=== PATIENT | male | born 1965 | race Caucasian/White ===

== ENCOUNTER 2016-11-01 14:26 | Emergency (ER) | payer OTHER ==
[2016-11-01] MEDS ORDERED: DEXAMETHASONE 10 MG/ML VIAL PO STA (16:35)
[2016-11-01] MEDS ORDERED: KETOROLAC 60 MG/2 ML VIAL IM STA (16:35)
--- NOTE | 2016-11-01 16:37 | ED Physician Documentation ---
PD HPI BACK PAIN - Stated complaint Stated Complaint: BACK INJ - Chief complaint Chief Complaint: Back Pain - History obtained from History obtained from: Patient - History of Present Illness Timing - onset: How many days ago (11) Timing - duration: Days (11) Timing - details: Abrupt onset Pain level max: 8 Pain level now: 8 Location: Lower, Left Quality: Pain, Spasm Associated symptoms: No: Fever, Weakness, Numbness, Incontinent of urine, Unable to urinate, Hematuria, Incontinent of stool Improves with: Rest, Meds (aleve) Worsened by: Movement, Lifting Contributing factors: Lifting, Twisting. No: Anticoagulated, Cancer Similar symptoms before: Has not had sx before Recently seen: Not recently seen - Additional information Additional information: states reseating a toilet at work and felt a tweak in his low back. Not improving with aleve. Review of Systems Constitutional: denies: Fever, Chills Nose: denies: Rhinorrhea / runny nose, Congestion GI: denies: Abdominal Pain, Nausea, Vomiting, Diarrhea Skin: denies: Rash Musculoskeletal: denies: Neck pain Neurologic: denies: Focal weakness, Numbness PD PAST MEDICAL HISTORY - Past Medical History Past Medical History: No - Past Surgical History Past Surgical History: No - Present Medications Home Medications: Ambulatory Orders Medication Instructions Recorded Confirmed Cyclobenzaprine [Flexeril] 10 mg PO TID PRN #20 tablet 11/01/16 Hydrocodone/Acetaminophen 1 - 2 each PO Q6H PRN #14 tablet 11/01/16 [Hydrocodon-Acetaminophen 5-325] Meloxicam [Mobic] 7.5 mg PO BID PRN #20 tablet 11/01/16 - Allergies Allergies/Adverse Reactions: Allergies Allergy/AdvReac Type Severity Reaction Status Date / Time meperidine HCl * Allergy Hives Verified 11/01/16 14:41 [From Demerol] Sulfa (Sulfonamide Allergy Nausea Verified 11/01/16 14:41 Antibiotics) - Living Situation Living Arrangement: reports: At home - Social History Does the pt have substance abuse?: No - Family History Family history: reports: Non contributory PD ED PE NORMAL - Vitals Vital signs reviewed: Yes - General General: Alert and oriented X 3, No acute distress, Well developed/nourished - HEENT HEENT: Moist mucous membranes - Neck Neck: Supple, no meningeal sign - Cardiac Cardiac: RRR - Respiratory Respiratory: No respiratory distress, Clear bilaterally - Abdomen Abdomen: Soft, Non tender, Non distended - Back Back: No CVA TTP, Other (No midline spinal tenderness. There is low lumbar paraspinal tenderness, right low lumbar. Spasm present. No midline tenderness to palpation or percussion) - Derm Derm: Warm and dry, No rash - Extremities Extremities: Other (normal bilateral lower extremity patellar and ankle jerk reflexes. Normal great toe extension bilaterally) - Neuro Neuro: Alert and oriented X 3, No motor deficit, No sensory deficit - Psych Psych: Normal mood, Normal affect Results - Vitals Vitals: Vital Signs - 24 hr 11/01/16 11/01/16 14:36 16:52 Temperature 36.6 C Heart Rate 72 74 Respiratory 18 14 Rate Blood Pressure 122/80 134/76 H O2 Saturation 98 99 Oxygen O2 Source Room air PD MEDICAL DECISION MAKING - ED course Complexity details: reviewed results, re-evaluated patient, considered differential (no cauda equina, no spinal epidural abscess, no fracture, no aortic dissection or evidence of aneursym rupture), d/w patient ED course: Patient is a 51-year-old male who presents to the emergency department with low back pain that he injured at work approximately 10-11 days ago. He is well- appearing, nontoxic. Afebrile. Does not use IV drugs. No evidence of cauda equina, epidural abscess. Will place on pain medication for home and follow-up with his doctor. Ambulating well. Patient counseled regarding signs and symptoms for which I believe and urgent re-evaluation would be necessary. Patient with good understanding of and agreement to plan and is comfortable going home at this time This document was made in part using voice recognition software. While efforts are made to proofread this document, sound alike and grammatical errors may occur. Departure - Departure Disposition: 01 Home, Self Care Clinical Impression: Back strain Qualifiers: Encounter type: initial encounter Qualified Code(s): S39.012A - Strain of muscle, fascia and tendon of lower back, initial encounter Back pain Qualifiers: Back pain location: low back pain Chronicity: acute Back pain laterality: left Sciatica presence: without sciatica Qualified Code(s): M54.5 - Low back pain Condition: Good Instructions: ED Sprain Strain Lumbar Follow-Up: Yuri Tapia MD [Primary Care Provider] - Within 1 week Prescriptions: Cyclobenzaprine [Flexeril] 10 mg PO TID PRN #20 tablet PRN Reason: Spasms Hydrocodone/Acetaminophen [Hydrocodon-Acetaminophen 5-325] 1 - 2 each PO Q6H PRN #14 tablet PRN Reason: pain Meloxicam [Mobic] 7.5 mg PO BID PRN #20 tablet PRN Reason: pain Comments: Return if you worsen. This should improve over the next week. Make sure to follow-up with your doctor as you may need further testing such as an MRI or referral to physical therapy if you are not improving as expected. Do not drink alcohol or drive while on narcotic pain medicine. Note that many narcotic pain relievers also contain tylenol/acetaminophen. Please ensure that your total dose of acetaminophen from all sources does not exceed 3 grams (3000mg) per day. You may constipated on this medication, take a stool softener such as "Colace" twice a day while you are on it. Also recommend a kuww-nfu-iynkzqe laxative such as senna or MiraLAX any day that you do not have a bowel movement. If you received narcotic pain medication in the emergency department, do not drive or operate machinery for the next 24 hours. Discharge Date/Time: 11/01/16 16:52
[2016-11-01 16:53] VITALS: BP 134/76
== END 2016-11-01 16:52 | disposition home or self-care (01) ==
LOC: ED 14:26
DX: S39.012A Strain of muscle, fascia and tendon of lower back, initial encounter (principal); X50.1XXA Overexertion from prolonged static or awkward postures, initial encounter; Y99.0 Civilian activity done for income or pay; M54.5 Low back pain
CPT/HCPCS: 96372; 99283

== ENCOUNTER 2017-04-30 07:07 | Outpatient (CLI) | payer OTHER ==
[2017-04-30 13:29] LABS: ALBUMIN 4.3 g/dL (3.2-5.5); ALBUMIN/GLOBULIN RATIO 1.8 (1.0-2.2); ALKALINE PHOSPHATASE 67 IU/L (42-121); ALT ALANINE AMINOTRANSFERASE 22 IU/L (10-60); AST ASPARTATE AMINOTRANSFERASE 22 IU/L (10-42); BILIRUBIN,TOTAL 0.7 mg/dL (0.2-1.0); BUN - BLOOD UREA NITROGEN 19 mg/dL (6-20); CALCIUM 9.1 mg/dL (8.5-10.3); CARBON DIOXIDE - CO2 26 mmol/L (21-32); CHLORIDE 103 mmol/L (101-111); CHOL/HDL RATIO 3.9 (<5.0); CHOLESTEROL 183 mg/dL; GFR - MDRD 79 (>89); GLUCOSE 91 mg/dL (70-100); HDL CHOLESTEROL 47 mg/dL; LDL CHOLESTEROL,CALCULATED 119 mg/dL; LDL/HDL RATIO 2.5 (<3.6); SODIUM 137 mmol/L (135-145); TOTAL PROTEIN 6.7 g/dL (6.7-8.2); VLDL CHOLESTEROL 17 mg/dL
== END 2017-04-30 07:08 | disposition home or self-care (01) ==
LOC: LAB.WCP 07:07
PROVIDERS: ATTEND Family Medicine
DX: E78.5 Hyperlipidemia, unspecified (principal); I10 Essential (primary) hypertension; Z12.5 Encounter for screening for malignant neoplasm of prostate
CPT/HCPCS: 36415; 80053; 80061; 83721; 84153

== ENCOUNTER 2019-06-15 10:15 | Day surgery (SDC) | payer OTHER ==
[2019-06-15] MEDS ORDERED: CEFAZOLIN SODIUM IN 0.9 % NACL 2 GM/100 ML BAG IV ONE (10:20)
[2019-06-15] MEDS ORDERED: ONDANSETRON 4 MG/2 ML VIAL IVP PRN (10:46)
[2019-06-15] MEDS ORDERED: HYDROmorphone 0.5 MG/0.5 ML SYRINGE IVP PRN (10:46)
[2019-06-15] MEDS ORDERED: oxyCODONE 5 MG TABLET PO PRN (10:46)
[2019-06-15] MEDS ORDERED: LACTATED RINGERS 1,000 ML IV ONE ×5 (10:50→19:44)
--- NOTE | 2019-06-15 13:07 | ANESTHESIA ---
Pre-Anesthesia VS, & Labs - Diagnosis right inguinal hernia - Procedure laparoscopic right inguinal hernia repair Vital Signs: Temp Pulse Resp BP Pulse Ox 36.6 C 55 L 16 155/101 H 99 06/15/19 10:25 06/15/19 10:25 06/15/19 10:25 06/15/19 10:25 06/15/19 10:25 Height 6 ft 1 in Weight (kg) 94.8 kg Body Mass Index 28.3 - NPO >8 hours Home Medications and Allergies Home Medications: Ambulatory Orders Aspirin [Aspirin EC] 81 mg PO DAILY 06/14/19 Lisinopril [Zestril] 20 mg PO DAILY 06/14/19 Multivitamin [Multiple Vitamins] 1 each PO DAILY 06/14/19 Active Medications Hydromorphone HCl (Dilaudid Inj Syringe) 0.5 mg IVP Q30M PRN PRN Reason: Breakthrough Pain Ondansetron HCl (Zofran Inj) 4 mg IVP Q6HR PRN PRN Reason: Nausea / Vomiting Oxycodone HCl (Roxicodone) 5 mg PO Q4HR PRN PRN Reason: PAIN Aspirin [Aspirin EC] 81 mg PO DAILY 06/14/19 Lisinopril [Zestril] 20 mg PO DAILY 06/14/19 Multivitamin [Multiple Vitamins] 1 each PO DAILY 06/14/19 Allergies/Adverse Reactions: Allergies Allergy/AdvReac Type Severity Reaction Status Date / Time meperidine HCl * Allergy Hives Verified 11/01/16 14:41 [From Demerol] shrimp Allergy Respiratory Verified 06/14/19 08:38 Sulfa (Sulfonamide AdvReac Nausea Verified 06/14/19 08:38 Antibiotics) Anes History & Medical History - Anesthetic History Anesthesia Complications: reports: No previous complications - Medical History Cardiovascular: reports: Hypertension Pulmonary: reports: None Gastrointestinal: reports: None Urinary: reports: None Musculoskeletal: reports: Osteoarthritis Endocrine/Autoimmune: reports: None Skin: reports: None Smoking Status: Never smoker - Surgical History General: Appendectomy Orthopedic: Arthroscopic surgery (knee) Exam General: Alert Dental: WNL Mouth Opening: Greater than 4 Fingerbreadths Neck Mobility: Normal Mallampati classification: II Thyromental Distance: greater than 6 cm Respiratory: Lungs clear, Normal breath sounds, No respiratory distress Cardiovascular: Regular rate, Normal S1, Normal S2 Plan Anesthesia Type: General Consent for Procedure(s) Verified and Reviewed: Yes Code Status: Attempt Resuscitation ASA classification: 2-Mild systemic disease Is this case an emergency?: No
[2019-06-15] MEDS ORDERED: LIDOCAINE 1%-EPI 1:100000 20 ML MDV ONE (13:21)
[2019-06-15] MEDS ORDERED: BUPIVACAINE 0.25% PF 30 ML VIAL ONE (13:21)
[2019-06-15] MEDS ORDERED: ACETAMINOPHEN 1,000 MG/100 ML 100 ML IV ONE ×2 (13:23→13:48)
[2019-06-15] MEDS ORDERED: ONDANSETRON 4 MG/2 ML VIAL IVP ONE (13:48)
[2019-06-15] MEDS ORDERED: NEOSTIGMINE 1 MG/1 ML 10 ML MDV IVP ONE (13:48)
[2019-06-15] MEDS ORDERED: LIDOCAINE-MPF 2% 5 ML VIAL IM ONE (13:48)
[2019-06-15] MEDS ORDERED: GLYCOPYRROLATE 1 MG/5 ML VIAL IVP ONE (13:48)
[2019-06-15] MEDS ORDERED: fentaNYL 100 MCG/2 ML VIAL IVP ONE (13:48)
[2019-06-15] MEDS ORDERED: PROPOFOL 200 MG/20 ML VIAL IVP ONE (13:48)
[2019-06-15] MEDS ORDERED: KETOROLAC 30 MG/ML VIAL IVP ONE (13:48)
[2019-06-15] MEDS ORDERED: DEXAMETHASONE 4 MG/ML VIAL IVP ONE (13:48)
[2019-06-15] MEDS ORDERED: ROCURONIUM 50 MG/5 ML VIAL IVP ONE (13:48)
[2019-06-15] MEDS ORDERED: LIDOCAINE MPF 1%-EPI 1:200000 30 ML VIAL SUBQ ONE (14:18)
[2019-06-15] MEDS ORDERED: BUPIVACAINE 0.25% PF 30 ML VIAL SUBQ ONE (14:19)
--- NOTE | 2019-06-15 17:23 | OPERATIVE REPORT ---
Operative Report - General Pre-Op Diagnosis: Right Inguinal Hernia Procedure Performed: 1. Laparoscopic Transabdominal Right Inguinal Hernia Repair with 22 modifier for strong and chronic adhesions to tissue around spermatic cord 2. Laparoscopic Lysis of Adhesions Post Op Diagnosis: same - Procedure Note Primary Surgeon: Heather France MD Anesthesia Provider: Kerry Pacheco CRNA Anesthesia Technique: General ET tube Pathology: none Estimated Blood Loss (mL): 20 Indications: 53yo M with symptomatic right inguinal hernia limiting his ability to work. He is very concerned about getting back to work quickly although we discussed the importance of not stressing the repair for 6 weeks. He would much prefer a laparoscopic approach so he can get back to work faster. He does understand this may be difficult or not feasible given a prior gangrenous appendicitis which he described as needed 'a month of antibiotics.' All risks, benefits, and alternatives discussed and pt wishes to proceed. Findings: 1. indirect right hernia with large lipoma 2. thick and tight chronic adhesions along right lower quadrant and involving tissue around spermatic cord 3. left sided inguinal hernia noted 4. diverticulosis of sigmoid colon Complications: thick adhesions in critical area causing prolonged and tedious dissection - Other Other Information/Narrative: The patient was taken to the operating room and placed on operating table in supine position. The abdomen was prepped and draped in sterile fashion and a time out is performed with the team present. Local anesthesia was used to infiltrate each port site as well as perform an ilioinguinal block. Using an 11 blade scalpel, a 12 mm periumbilical incision was made and the abdomen entered via cutdown technique to introduce a Xiao trocar. Pneumoperitoneum was introduced. Two secondary 5mm trocars were then placed under direct vision lateral to the bilateral rectus sheaths. The abdomen was inspected and there was bowel adherent along the right lower quadrant peritoneum. Some of this was carefully taken down to expose the plane needed to work. Other observations include a moderate left sided inguinal hernia as diverticulosis of the sigmoid colon. Initial dissection began on the right side with an incision into the peritoneum which was carried laterally to the ASIS and medially to the pubic tubercle. The plane was developed and this was quite tedious in the area of the spermatic cord as adhesions to the peritoneum here involved the spermatic cord tissues. This scarred tissue is thick and strong. Very long and careful dissection was undertaken to separate the structures safely until the hernia defect, epigastric vessels, cord structures, and pubic tubercle were exposed. Consideration was given to stopping and opening but slow progress was being made and staying laparoscopic will benefit patient in his need to return sooner to work. The indirect defect was reduced. A large cord lipoma was encountered and also reduced. A large right sided Bard contoured mesh was introduced and carefully placed to cover the defect and overlap the pubic tubercle as well as potential spaces for indirect and femoral defects. It is secured into place with tacks with attention to underlying vessel and nerve anatomy. The peritoneal flap is then closed and secured with tacks with attention to the remaining bowel that was not taken down due to close adhesions. The left sided hernia noted on initial inspection was left due to the already prolonged surgery and as it is asymptomatic. The secondary trocars were removed under direct vis ion noting no bleeding. The abdomen was allowed to desufflate fully. The final trocar was removed. The periumbilical incision is closed with previously placed stay sutures. The skin incisions were then re-approximated using 4-0 Monocryl in an interrupted subcuticular fashion. The abdomen was cleaned and dried and Dermabond was placed over each of the incisions. The patient was awakened and taken to the postanesthesia care unit in stable condition. All counts were correct at the end of the procedure.
[2019-06-15] MEDS: fentaNYL 100 MCG/2 ML VIAL ONE ×2 (17:35→17:41)
[2019-06-15] MEDS ORDERED: oxyCODONE 5 MG TABLET ONE (18:07)
[2019-06-15 21:32] VITALS: BP 160/89
== END 2019-06-15 21:30 | disposition home or self-care (01) ==
LOC: SDS 10:15 → MS2 19:50 → SDS 21:30
PROVIDERS: ATTEND Surgery
PROC: 0YU54JZ Supplement Right Inguinal Region with Synthetic Substitute, Percutaneous Endoscopic Approach (ICD-10-PCS; principal; 2019-06-15 12:45)
DX: K40.20 Bilateral inguinal hernia, without obstruction or gangrene, not specified as recurrent (principal); K66.0 Peritoneal adhesions (postprocedural) (postinfection); D17.6 Benign lipomatous neoplasm of spermatic cord; K57.30 Diverticulosis of large intestine without perforation or abscess without bleeding; I10 Essential (primary) hypertension; Z79.82 Long term (current) use of aspirin
CPT/HCPCS: 49650; A9270; C1781; J0131; J0690; J7120

== ENCOUNTER 2019-09-03 07:25 | Outpatient (CLI) | payer OTHER ==
[2019-09-03 14:03] LABS: ALBUMIN 4.3 g/dL (3.2-5.5); ALBUMIN/GLOBULIN RATIO 1.4 (1.0-2.2); ALKALINE PHOSPHATASE 82 IU/L (42-121); ALT ALANINE AMINOTRANSFERASE 24 IU/L (10-60); AST ASPARTATE AMINOTRANSFERASE 35 IU/L (10-42); BILIRUBIN,TOTAL 0.5 mg/dL (0.2-1.0); BUN - BLOOD UREA NITROGEN 16 mg/dL (6-20); CALCIUM 8.8 mg/dL (8.5-10.3); CARBON DIOXIDE - CO2 24 mmol/L (21-32); CHLORIDE 106 mmol/L (101-111); CHOL/HDL RATIO 3.4 (<5.0); CHOLESTEROL 181 mg/dL; CREATININE 0.9 mg/dL (0.6-1.2); GLUCOSE 107 mg/dL (70-100); HDL CHOLESTEROL 54 mg/dL; LDL CHOLESTEROL,CALCULATED 117 mg/dL; LDL/HDL RATIO 2.2 (<3.6); SODIUM 137 mmol/L (135-145); TOTAL PROTEIN 7.3 g/dL (6.7-8.2); VLDL CHOLESTEROL 10 mg/dL
== END 2019-09-03 23:59 | disposition home or self-care (01) ==
LOC: LAB.WCP 07:25
PROVIDERS: ATTEND Family Medicine
DX: E78.5 Hyperlipidemia, unspecified (principal); I10 Essential (primary) hypertension; Z12.5 Encounter for screening for malignant neoplasm of prostate
CPT/HCPCS: 36415; 80053; 80061; 83721; 84153

== ENCOUNTER 2022-10-17 13:13 | Outpatient (CLI) | payer OTHER ==
[2022-10-17 17:56] LABS: BASOPHILS # (AUTO) 0.1 10^3/uL (0.0-0.1); BASOPHILS % (AUTO) 0.8 %; EOSINOPHILS # (AUTO) 0.2 10^3/uL (0.0-0.7); EOSINOPHILS % (AUTO) 2.6 %; HCT - HEMATOCRIT 46.3 % (42.0-52.0); HGB - HEMOGLOBIN 15.6 g/dL (14.0-18.0); LYMPHOCYTES # (AUTO) 2.3 10^3/uL (1.5-3.5); LYMPHOCYTES % (AUTO) 25.1 %; MEAN CORPUSCULAR HGB CONC 33.7 g/dL (32.0-36.0); MEAN PLATELET VOLUME 9.3 fL (7.4-11.4); MONOCYTES # (AUTO) 0.7 10^3/uL (0.0-1.0); NEUTROPHILS # (AUTO) 5.8 10^3/uL (1.5-6.6); NEUTROPHILS % (AUTO) 63.3 %; PLT - PLATELET COUNT 364 10^3/uL (130-450); RED CELL DISTRIBUTION WIDTH 12.9 % (12.0-15.0); WHITE BLOOD COUNT 9.2 x10^3/uL (4.8-10.8)
[2022-10-17 18:15] LABS: ALBUMIN 4.6 g/dL (3.2-5.5); ALBUMIN/GLOBULIN RATIO 1.4 (1.0-2.2); ALKALINE PHOSPHATASE 79 IU/L (42-121); ALT ALANINE AMINOTRANSFERASE 26 IU/L (10-60); AST ASPARTATE AMINOTRANSFERASE 22 IU/L (10-42); BILIRUBIN,TOTAL 0.7 mg/dL (0.2-1.0); BUN - BLOOD UREA NITROGEN 23 mg/dL (6-20); CALCIUM 9.7 mg/dL (8.5-10.3); CARBON DIOXIDE - CO2 27 mmol/L (21-32); CHLORIDE 105 mmol/L (101-111); CHOL/HDL RATIO 3.9 (<5.0); CHOLESTEROL 195 mg/dL; CREATININE 0.9 mg/dL (0.6-1.2); GFR - MDRD 87 (>89); GLUCOSE 88 mg/dL (70-100); HDL CHOLESTEROL 50 mg/dL; LDL CHOLESTEROL,CALCULATED 117 mg/dL; LDL/HDL RATIO 2.3 (<3.6); POTASSIUM 4.2 mmol/L (3.5-5.0); SODIUM 138 mmol/L (135-145); TOTAL PROTEIN 7.9 g/dL (6.7-8.2); TRIGLYCERIDES 139 mg/dL; VLDL CHOLESTEROL 28 mg/dL
[2022-10-17 18:20] LABS: THYROID STIMULATING HORMONE 1.15 uIU/mL (0.34-5.60)
== END 2022-10-17 13:14 | disposition home or self-care (01) ==
LOC: LAB.N 13:13
PROVIDERS: ATTEND Physician Assistant
DX: Z13.220 Encounter for screening for lipoid disorders (principal); Z12.5 Encounter for screening for malignant neoplasm of prostate; Z13.29 Encounter for screening for other suspected endocrine disorder; Z13.9 Encounter for screening, unspecified
CPT/HCPCS: 36415; 80053; 80061; 83721; 84153; 84443; 85025

== ENCOUNTER 2023-05-20 08:01 | Outpatient (CLI) | payer OTHER | END 2023-05-20 08:02 | disposition critical access hospital (66) | LOC: EMS 08:01 | DX: R07.1 Chest pain on breathing (principal); R61 Generalized hyperhidrosis; R42 Dizziness and giddiness; R06.02 Shortness of breath | CPT/HCPCS: A0425; A0429 ==

== ENCOUNTER 2023-05-20 08:21 | Emergency (ER) | payer OTHER ==
--- NOTE | 2023-05-20 08:45 | ED Physician Documentation ---
PD HPI DYSPNEA - Stated complaint Stated Complaint: CP - Chief complaint Chief Complaint: Cardiac - History obtained from History obtained from: Patient, EMS - History of Present Illness Timing - onset: How many weeks ago (3) Timing - onset during: Light activity Timing - duration: Weeks (3) Timing - details: Gradual onset, Still present, Waxing and waning Review of Systems Constitutional: reports: Myalgias, Fatigue. denies: Fever, Chills Nose: denies: Rhinorrhea / runny nose, Congestion Throat: denies: Dental pain / toothache, Sore throat Cardiac: denies: Chest pain / pressure PD PAST MEDICAL HISTORY - Past Medical History Cardiovascular: Hypertension Respiratory: None Endocrine/Autoimmune: None GI: None : None HEENT: Chronic vision loss Psych: Depression Musculoskeletal: Osteoarthritis Derm: None - Past Surgical History Past Surgical History: No General: Appendectomy Ortho: Arthroscopic surgery - Present Medications Home Medications: Ambulatory Orders Medication Instructions Recorded Confirmed Aspirin [Aspirin EC] 81 mg PO DAILY 06/14/19 05/20/23 Lisinopril [Zestril] 20 mg PO DAILY 06/14/19 05/20/23 Clindamycin [Cleocin] 300 mg PO TID 5 Days #15 cap 05/20/23 HYDROcod/ACETAM 5/325 [[place] 5/325] 1 ea PO Q6H PRN #14 tablet 05/20/23 Naproxen Sodium [Aleve] 220 mg PO BID PRN 05/20/23 05/20/23 dexAMETHasone [Decadron] 4 mg PO DAILY #5 tablet 05/20/23 - Allergies Allergies/Adverse Reactions: Allergies Allergy/AdvReac Type Severity Reaction Status Date / Time meperidine HCl * Allergy Hives Verified 05/20/23 08:41 [From Demerol] shrimp Allergy Respiratory Verified 05/20/23 08:41 Sulfa (Sulfonamide AdvReac Nausea Verified 05/20/23 08:41 Antibiotics) - Social History Does the pt smoke?: No Smoking Status: Never smoker Does the pt drink ETOH?: No Does the pt have substance abuse?: No - Immunizations Immunizations: TDAP >10years/unknown - POLST Patient has POLST: No PD ED PE NORMAL - Vitals Vital signs reviewed: Yes - General General: Alert and oriented X 3, Well developed/nourished - HEENT HEENT: Ears normal, Pharynx benign, Other (multiple cdental caries. No areas of swelling nor tenderness except at the gum around the recent extraction site. ) - Neck Neck: Supple, no meningeal sign, No adenopathy - Cardiac Cardiac: RRR, No murmur - Respiratory Respiratory: No respiratory distress, Clear bilaterally - Derm Derm: Normal color, Warm and dry - Neuro Neuro: Alert and oriented X 3, package maker 2-12 intact, No motor deficit, No sensory deficit, Normal speech, Other Eye Opening: Spontaneous Motor: Obeys Commands Verbal: Oriented GCS Score: 15 Results - Vitals Vitals: Vital Signs - 24 hr 05/20/23 05/20/23 05/20/23 08:37 10:29 12:19 Temperature 36.2 C L Heart Rate 68 68 72 Respiratory 16 20 23 Rate Blood Pressure 127/76 121/71 126/81 H O2 Saturation 98 100 98 05/20/23 05/20/23 14:22 15:36 Temperature 36.6 C Heart Rate 77 84 Respiratory 19 16 Rate Blood Pressure 134/78 H 138/83 H O2 Saturation 99 96 Oxygen O2 Source Room air - EKG (time done) 09:09 EKG releavant findings:: EKG personally interpreted by author of this note. Relevant findings are: Rate: Rate (enter#) (66) Rhythm: NSR [place]: Normal Intervals: Normal [place] QRS: Normal Ischemia: Normal ST segments, ST elevation c/w repol (versus pericarditis, though not widespread changes. ) - Labs Labs: Laboratory Tests 05/20/23 05/20/23 05/20/23 08:54 08:54 08:54 WBC 19.1 H RBC 4.09 L Hgb 12.3 L Hct 36.1 L MCV 88.3 MCH 30.1 MCHC 34.1 RDW 12.7 Plt Count 479 H MPV 8.8 Neut # (Auto) 15.3 H Lymph # (Auto) 1.8 [place] # (Auto) 1.8 H Eos # (Auto) 0.0 Baso # (Auto) 0.1 Absolute Nucleated RBC 0.00 Nucleated RBC % 0.0 Manual Slide Review Indicated RBC Morph Micro Appear 1+ ANISOCYTOSIS ESR Sodium 132 L Potassium 3.8 Chloride 100 L Carbon Dioxide 21 Anion Gap 11.0 BUN 18 Creatinine 0.8 Estimated GFR (MDRD) 100 Glucose 107 H POC Whole Bld Glucose Lactic Acid Calcium 9.4 Magnesium 2.0 Total Bilirubin 0.8 AST 23 ALT 41 Alkaline Phosphatase 157 H Troponin I High Sens 3.3 B-Natriuretic Peptide 31 Total Protein 7.0 Albumin 3.6 Globulin 3.4 Albumin/Globulin Ratio 1.1 Lipase < 10 L TSH 1.16 05/20/23 05/20/23 05/20/23 08:54 08:54 09:18 WBC RBC Hgb Hct MCV MCH MCHC RDW Plt Count MPV Neut # (Auto) Lymph # (Auto) [place] # (Auto) Eos # (Auto) Baso # (Auto) Absolute Nucleated RBC Nucleated RBC % Manual Slide Review RBC Morph Micro Appear ESR 89 H Sodium Potassium Chloride Carbon Dioxide Anion Gap BUN Creatinine Estimated GFR (MDRD) Glucose POC Whole Bld Glucose 110 H Lactic Acid 1.0 Calcium Magnesium Total Bilirubin AST ALT Alkaline Phosphatase Troponin I High Sens B-Natriuretic Peptide Total Protein Albumin Globulin Albumin/Globulin Ratio Lipase TSH - Rads (name of study) chest xray Relevant Findings:: Prelim report reviewed, EMP independent interpretation of test head CT Relevant Findings:: Prelim report reviewed (no acute intracranial abnormality. IN particular, no mass effect nor enhancing lesions.), EMP independent interpretation of test PD Medical Decision Making - ED course Complexity details: reviewed results (elevated WBC 19K and ESR 89. LFTs are okay. normal glucose level. CXR is clear without infiltrates. ECG with nonspecific ST changes.), considered differential (had tooth extraction due to periapical infection and was on Amox. Swelling improved but has had continued feeling of fatigue, dyspnea, and some now chest pains anteriorly. Also pressure type headache for same time frame, about 2-3 weeks, worse the past couple days. No fevers nor cough. ), d/w patient ED course: has had headache, dyspnea, chest tightness and now some pains intermittently for 2-3 weeks, after having dental infection a month aog Rx with Amox and then tooth extraction. Has had minimal swelling and tender of the gum area the past few days. NO pain with swallowing. No fevers. General malaise and fatigue. Feeling lightheaded at times. Main areas of concern are pericardial and endocardial infections/inflammation. Also consider sinus infection maxillary area and brain abscess/other mass effect, given new headache. Labs showing elevated WBC 19K and ESR 89. Other labs unremarkable. This includes normal glucose as his symptoms could have related to new diabetes. Head CT is clear. CXR without infiltrates and has normal heart size. ECHO was able to be done and did not show acute abnormality (EF 60%, no pericardial effusion, normal valves). He does have some mild swelling and tenderness at gum near extraction. I do not think this is enough to acccount for his symptoms nor the ESR/WBC clinically. Main results are good that no signs of brain abscess/mass effect and no signs of encocarditits,pericarditis. CLn=inically not having other areas of suspicon for infections. Presume then could have gotten viral illness close in time with the tooth extraction and having residual post viral symptoms. Consider auto- immune/inflammatory response to the recent infection/bx and can treat with steroid course. Departure - Departure Disposition: 01 Home, Self Care Clinical Impression: Exertional dyspnea, Headache, S/P tooth extraction, Fatigue Condition: Stable Record reviewed to determine appropriate education?: Yes Instructions: ED Dyspnea Shortness of Breath, ED Cephalgia Unspecified Prescriptions: Clindamycin [Cleocin] 300 mg PO TID 5 Days #15 cap dexAMETHasone [Decadron] 4 mg PO DAILY #5 tablet HYDROcod/ACETAM 5/325 [[place] 5/325] 1 ea PO Q6H PRN #14 tablet PRN Reason: Pain Comments: Your blood tests had suggestion of infection with an elevated WBC/white count. You also have an elevated inflammatory marker called the sed rate. We did look for signs of infection based on your symptoms. Your head CT did not show any signs of obvious tumors, swelling, abscess, infection. We looked at your heart and lungs because of your symptoms there and there is no signs of heart muscle injury/heart attack nor heart failure. The ultrasound of your heart echocardiogram did not show any inflammation around the heart sac or fluid nor dysfunction of the heart contraction. The heart valves appeared normal without any signs of infection on the. At this point you may be having symptoms more related to inflammatory response of your immune system from the recent dental infection and antibiotics etc. There is a little bit of's mild swelling and tenderness around the tooth area. There could be some mild residual infection there. We can go with clindamycin antibiotic 3 times daily for 5 days. Otherwise I do not think this would account for your degree of symptoms. Instead I would treat with some steroid medication presuming a inflammatory response (based on symptoms and also your ESR blood test). Stay well-hydrated. Continue usual medicines. Take Tylenol 500 to 650 mg 4 times daily for pains. Add hydrocodone every 4-6 hours if needed for worse phuong n. This would be intended short-term until the other medications are improving you. I sent your prescriptions to [facility] in [place]. Follow-up with your primary care or the walk-in if not improved well over the next several days and resolved by 3 to 5 days. Return to the ER if worsening or other problems. I am prescribing a short course of narcotic pain medication for you. These are potentially dangerous and addictive medications that should be used carefully. These medications may constipate you. Take an hmjg-wox-nrjtrbh stool softener such as docusate twice daily with plenty of water while taking these medications. If you go 24 hours without a bowel movement, take kwpr-bap-sihmkny MiraLAX, per package instructions. Do not drink or drive while taking these medications. If you received narcotic or sedating medications while in the emergency department do not drive for 24 hours. Store this medication in a safe, secure place and out of reach of children. It is a violation of federal law to give or sell this medication to another person or to use in a manner other than prescribed. The ED will not refill narcotic prescriptions, including prescriptions lost or stolen. You can dispose of unwanted medications at the [facility]'s office or at several pharmacies such as [facility]. Forms: PCP List Discharge Date/Time: 05/20/23 15:50
[2023-05-20 09:07] LABS: BASOPHILS # (AUTO) 0.1 10^3/uL (0.0-0.1); BASOPHILS % (AUTO) 0.3 %; EOSINOPHILS % (AUTO) 0.1 %; HCT - HEMATOCRIT 36.1 % (42.0-52.0); HGB - HEMOGLOBIN 12.3 g/dL (14.0-18.0); LYMPHOCYTES # (AUTO) 1.8 10^3/uL (1.5-3.5); LYMPHOCYTES % (AUTO) 9.5 %; MEAN CORPUSCULAR HEMOGLOBIN 30.1 pg (27.0-31.0); MEAN CORPUSCULAR HGB CONC 34.1 g/dL (32.0-36.0); MEAN CORPUSCULAR VOLUME 88.3 fL (80.0-94.0); MEAN PLATELET VOLUME 8.8 fL (7.4-11.4); MONOCYTES # (AUTO) 1.8 10^3/uL (0.0-1.0); MONOCYTES % (AUTO) 9.5 %; NEUTROPHILS # (AUTO) 15.3 10^3/uL (1.5-6.6); NEUTROPHILS % (AUTO) 80.2 %; PLT - PLATELET COUNT 479 10^3/uL (130-450); RED BLOOD COUNT 4.09 10^6/uL (4.70-6.10); RED CELL DISTRIBUTION WIDTH 12.7 % (12.0-15.0); WHITE BLOOD COUNT 19.1 x10^3/uL (4.8-10.8)
[2023-05-20] MEDS: SODIUM CHLORIDE 0.9% 1,000 ML IV STA (09:09)
[2023-05-20 09:15] LABS: RBC MORPHOLOGY (MULTIPLE) 1+ ANISOCYTOSIS (NORMAL); SLIDE REVIEW? Indicated
[2023-05-20 09:16] LABS: ALBUMIN 3.6 g/dL (3.2-5.5); ALBUMIN/GLOBULIN RATIO 1.1 (1.0-2.2); ALKALINE PHOSPHATASE 157 IU/L (42-121); ALT ALANINE AMINOTRANSFERASE 41 IU/L (10-60); AST ASPARTATE AMINOTRANSFERASE 23 IU/L (10-42); BILIRUBIN,TOTAL 0.8 mg/dL (0.2-1.0); BUN - BLOOD UREA NITROGEN 18 mg/dL (6-20); CALCIUM 9.4 mg/dL (8.5-10.3); CARBON DIOXIDE - CO2 21 mmol/L (21-32); CHLORIDE 100 mmol/L (101-111); CREATININE 0.8 mg/dL (0.6-1.3); GFR - MDRD 100 (>89); GLUCOSE 107 mg/dL (74-104); POTASSIUM 3.8 mmol/L (3.5-4.5); SODIUM 132 mmol/L (135-145)
[2023-05-20 09:20] LABS: LIPASE < 10 U/L (11-82)
[2023-05-20 09:22] LABS: TROPONIN I HIGH SENSITIVITY 3.3 ng/L (2.3-19.7)
[2023-05-20] MEDS ORDERED: iohexoL-300 100 ML VIAL ONE (09:27)
[2023-05-20 09:32] LABS: THYROID STIMULATING HORMONE 1.16 uIU/mL (0.34-5.60)
[2023-05-20] MEDS: iohexoL-300 100 ML VIAL IVP ONE (09:58)
--- NOTE | 2023-05-20 10:11 | XRAY Report ---
PROCEDURE: Chest 1V INDICATIONS: Chest Pain TECHNIQUE: One view of the chest was acquired. COMPARISON: 02/15/2008 FINDINGS: Surgical changes and devices: None. Lungs and pleura: No pleural effusions or pneumothorax. Lungs are clear. Mediastinum: Mediastinal contours appear normal. Heart size is normal. Bones and chest wall: No suspicious bony lesions. Overlying soft tissues appear unremarkable. IMPRESSION: No acute cardiopulmonary process. Reviewed by: Shayy Galeano MD on 05/20/2023 10:09 AM [facility] Approved by: Shayy Galeano MD on 05/20/2023 10:09 AM [facility] Station ID: [id number]
--- NOTE | 2023-05-20 10:13 | CT Report ---
PROCEDURE: Head W/WO INDICATIONS: headache, confused for 3 weeks TECHNIQUE: 4.5 mm thick angled axial sections acquired from the foramen magnum to the vertex before and after th e administration of intravenous contrast. For radiation dose reduction, the following was used: aut omated exposure control, adjustment of mA and/or kV according to patient size. CONTRAST: Omni 300 100ml COMPARISON: None. FINDINGS: Image quality: Excellent. CSF Spaces: Basal cisterns are patent. No extra-axial fluid collections. Ventricles are normal in size and shape. Brain: No midline shift. No intracranial bleeds or masses. No abnormal intracranial enhancement. Chan-white interface appears normal. Skull and face: Calvarium and visualized facial bones appear intact, without suspicious lesions. Sinuses: Visualized sinuses and mastoids are clear. IMPRESSION: Head CT within normal limits, without masses or abnormal enhancement seen, to the limits of CT. Reviewed by: Eldon Covarrubias MD on 05/20/2023 9:12 AM [facility] Approved by: Eldon Covarrubias MD on 05/20/2023 9:12 AM [facility] Station ID: [id number]
[2023-05-20] MEDS: KETOROLAC 15 MG/ML VIAL IVP STA (10:27)
[2023-05-20] MEDS: DEXAMETHASONE 10 MG/ML VIAL IVP STA (14:54)
[2023-05-20] MEDS: HYDROcod/ACETAM 5/325 MG TABLET PO STA (15:35)
[2023-05-20] MEDS: CLINDAMYCIN 150 MG CAPSULE PO STA (15:36)
[2023-05-20 15:41] VITALS: BP 138/83; O2SAT 96
== END 2023-05-20 15:50 | disposition home or self-care (01) ==
LOC: EDUNIT# → ED 08:21
DX: R06.09 Other forms of dyspnea (principal); R51.9 Headache, unspecified; R53.83 Other fatigue; D72.829 Elevated white blood cell count, unspecified; R70.0 Elevated erythrocyte sedimentation rate; Z98.818 Other dental procedure status
CPT/HCPCS: 36415; 70470; 71045; 80053; 83605; 83690; 83735; 83880; 84443; 84484; 85025; 85651; 93005; 93307; 96374; 96375; 99284; A9270; Q9967

== ENCOUNTER → 2023-05-23 | Outpatient (CLI) | payer OTHER ==
[2023-05-23 17:00] LABS: BASOPHILS % (AUTO) 0.1 %; HCT - HEMATOCRIT 38.5 % (42.0-52.0); HGB - HEMOGLOBIN 12.9 g/dL (14.0-18.0); LYMPHOCYTES # (AUTO) 1.3 10^3/uL (1.5-3.5); LYMPHOCYTES % (AUTO) 5.8 %; MEAN CORPUSCULAR HGB CONC 33.5 g/dL (32.0-36.0); MEAN CORPUSCULAR VOLUME 89.5 fL (80.0-94.0); MEAN PLATELET VOLUME 8.3 fL (7.4-11.4); MONOCYTES # (AUTO) 0.9 10^3/uL (0.0-1.0); MONOCYTES % (AUTO) 4.2 %; NEUTROPHILS # (AUTO) 19.8 10^3/uL (1.5-6.6); NEUTROPHILS % (AUTO) 89.3 %; PLT - PLATELET COUNT 706 10^3/uL (130-450); RED CELL DISTRIBUTION WIDTH 13.1 % (12.0-15.0); WHITE BLOOD COUNT 22.1 x10^3/uL (4.8-10.8)
[2023-05-23 17:10] LABS: ALBUMIN 3.8 g/dL (3.2-5.5); BILIRUBIN,TOTAL 0.3 mg/dL (0.2-1.0); CALCIUM 9.8 mg/dL (8.5-10.3); CREATININE 0.7 mg/dL (0.6-1.3); TOTAL PROTEIN 7.6 g/dL (6.4-8.9)
[2023-05-23 17:25] LABS: SLIDE REVIEW? Indicated
[2023-05-23 18:07] LABS: DIFFERENTIAL COMMENT MANUAL=AUTO DIFF; PLATELET ESTIMATE, MANUAL INCREASED (>450,000) (NORMAL); PLATELET MORPHOLOGY NORMAL APPEARANCE (NORMAL); RBC MORPHOLOGY (MULTIPLE) NORMAL APPEARANCE (NORMAL)
== END ==
LOC: LAB 16:09
PROVIDERS: ATTEND Physician Assistant
DX: D72.829 Elevated white blood cell count, unspecified (principal); R70.0 Elevated erythrocyte sedimentation rate
CPT/HCPCS: 36415; 80053; 85025; 85651; 87040

== ENCOUNTER 2023-05-27 08:00 | Outpatient (CLI) | payer OTHER | END 2023-05-27 23:59 | disposition home or self-care (01) | LOC: LAB.N 08:00 | PROVIDERS: ATTEND Family Medicine | DX: R35.0 Frequency of micturition (principal) | CPT/HCPCS: 87086 ==

== ENCOUNTER 2023-05-27 09:42 | Outpatient (CLI) | payer OTHER ==
[2023-05-27 09:53] LABS: BASOPHILS % (AUTO) 0.3 %; EOSINOPHILS % (AUTO) 0.3 %; HCT - HEMATOCRIT 40.9 % (42.0-52.0); HGB - HEMOGLOBIN 13.5 g/dL (14.0-18.0); LYMPHOCYTES % (AUTO) 11.1 %; MEAN CORPUSCULAR HEMOGLOBIN 29.5 pg (27.0-31.0); MEAN CORPUSCULAR VOLUME 89.3 fL (80.0-94.0); MONOCYTES % (AUTO) 6.5 %; NEUTROPHILS % (AUTO) 80.4 %; PLT - PLATELET COUNT 685 10^3/uL (130-450); RED BLOOD COUNT 4.58 10^6/uL (4.70-6.10); RED CELL DISTRIBUTION WIDTH 13.1 % (12.0-15.0); WHITE BLOOD COUNT 22.2 x10^3/uL (4.8-10.8)
[2023-05-27 09:55] LABS: ABNORMAL LYMPHS % (MANUAL) 0 %; BAND NEUTROPHILS % (MANUAL) 0 %
[2023-05-27 10:11] LABS: ALBUMIN 3.6 g/dL (3.2-5.5); ALBUMIN/GLOBULIN RATIO 0.9 (1.0-2.2); BILIRUBIN,TOTAL 0.5 mg/dL (0.2-1.0); CALCIUM 9.5 mg/dL (8.5-10.3); CREATININE 0.9 mg/dL (0.6-1.3); TOTAL PROTEIN 7.4 g/dL (6.4-8.9)
[2023-05-27 10:19] LABS: EOSINOPHILS # (MANUAL) 0.7 10^3/uL (0-0.7); LYMPHOCYTES # (MANUAL) 3.1 10^3/uL (1.5-3.5); LYMPHOCYTES % (MANUAL) 10 %; MONOCYTES # (MANUAL) 3.8 10^3/uL (0.0-1.0); NEUTROPHILS # (MANUAL) 14.7 10^3/uL (1.5-6.6); REACTIVE LYMPHS % (MANUAL) 4 %
[2023-05-27 10:20] LABS: DIFFERENTIAL COMMENT MANUAL DIFFERENTIAL
[2023-05-27 10:27] LABS: FERRITIN 317.7 ng/mL (23.9-336.2)
== END 2023-05-27 09:43 | disposition home or self-care (01) ==
LOC: LAB 09:42
PROVIDERS: ATTEND Physician Assistant
DX: D75.839 Thrombocytosis, unspecified (principal); R70.0 Elevated erythrocyte sedimentation rate; D72.829 Elevated white blood cell count, unspecified; R35.0 Frequency of micturition
CPT/HCPCS: 36415; 80053; 82728; 83540; 84466; 85025; 87086

== ENCOUNTER 2023-05-30 14:42 | Outpatient (CLI) | payer OTHER ==
[2023-05-30] MEDS ORDERED: DIATRIZOATE MEGLU/DIATRIZO SOD 30 ML BOTTLE PO ONE (14:46)
[2023-05-30] MEDS ORDERED: iohexoL-300 100 ML VIAL ONE (14:46)
[2023-05-30] MEDS: DIATRIZOATE MEGLU/DIATRIZO SOD 30 ML BOTTLE PO ONE (18:26)
[2023-05-30] MEDS: iohexoL-300 100 ML VIAL IVP ONE (18:27)
--- NOTE | 2023-05-30 18:28 | CT Report ---
PROCEDURE: Abdomen/Pelvis W INDICATIONS: ELEVATED LFTS, URINARY FREQ,THROMBOCYTOSIS CONTRAST: 100ml Omnipaque 300 TECHNIQUE: After the administration of intravenous contrast, a CT scan of the abdomen and pelvis was performed. Images were recorded and evaluated at appropriate window settings. Reformats: coronal and sagittal. F or radiation dose reduction, the following was used: automated exposure control, adjustment of mA and /or kV according to patient size. COMPARISON: CT abdomen and pelvis on February 11, 2008. FINDINGS: Image quality: Diagnostic. Lower chest: Unremarkable. Liver: Noncirrhotic morphology. Large heterogeneous bilobed mass with central hypoattenuation measuri ng 6.7 x 6.4 cm and 4.9 x 4.1 cm with peripheral enhancement. Additional subcentimeter hypodensity in the hepatic dome measuring 0.4 cm which is too small to characterize (2/19). These are new compared to prior CT dated February 11, 2008. Gallbladder and biliary tree: No radiopaque stones or wall thickening. No biliary dilation. Spleen: No splenomegaly. Pancreas: No pancreatic ductal dilation. Adrenals: No adrenal nodule. Kidneys and ureters: No hydronephrosis. No renal cystic lesion which requires follow up. No solid mas s. Stomach, bowel and peritoneum: Stomach appears grossly normal. Small and large bowel is normal in rachell iber, without obstruction. 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 Sigmoid and colonic diverticulosis, without diverticulitis. Lymph nodes: No central or retroperitoneal adenopathy. Vessels: No infrarenal aortic aneurysm. Patent hepatic, portal, splenic and bilateral renal veins. Pr oximal mesenteric vessels are patent. PELVIS Reproductive organs: Unremarkable. Bladder: No abnormal wall thickening, accounting for underdistention. Pelvic lymph nodes: No pelvic adenopathy by size criteria. Bones: No aggressive osseous abnormality. No acute fractures. [id number] multilevel degenerativ e changes of the spine. Other: Small bilateral fat-containing inguinal hernias, left greater than right. IMPRESSION: 1.Noncirrhotic liver morphology with new large heterogeneous bilobed mass with central necrosis measu ring 6.7 x 6.4 cm and 4.9 x 4.1 cm with peripheral enhancement. Findings are suspicious for abscess, primary liver malignancy (ie hepatocellular carcinoma or cholangiocarcinoma) versus metastatic diseas e. Correlate with AFP and recommend an MRI of the liver and tissue sampling for further evaluation. 2.No hydronephrosis or nephrolithiasis. Bladder is underdistended and appears grossly normal. 3. No evidence of metastatic disease within the remainder of the abdomen or pelvis. 4. Sigmoid and colonic diverticulosis, without diverticulitis. Findings will be relayed to the ordering provider during the next business day. Reviewed by: Jenny Macias MD on 05/30/2023 6:27 PM PST Approved by: Jenny Macias MD on 05/30/2023 6:27 PM PST Station ID: [id number]
== END 2023-05-30 14:43 | disposition home or self-care (01) ==
LOC: DI 14:42
PROVIDERS: ATTEND Family Medicine
DX: R35.0 Frequency of micturition (principal); D75.839 Thrombocytosis, unspecified; R70.0 Elevated erythrocyte sedimentation rate; D72.829 Elevated white blood cell count, unspecified; R79.89 Other specified abnormal findings of blood chemistry; K76.89 Other specified diseases of liver; R93.2 Abnormal findings on diagnostic imaging of liver and biliary tract; K57.30 Diverticulosis of large intestine without perforation or abscess without bleeding
CPT/HCPCS: 74177; Q9963; Q9967

== ENCOUNTER 2023-06-02 20:10 | Emergency (ER) | payer OTHER ==
[2023-06-02 21:03] LABS: BASOPHILS # (AUTO) 0.1 10^3/uL (0.0-0.1); BASOPHILS % (AUTO) 0.5 %; EOSINOPHILS # (AUTO) 0.1 10^3/uL (0.0-0.7); EOSINOPHILS % (AUTO) 0.8 %; HCT - HEMATOCRIT 39.6 % (42.0-52.0); HGB - HEMOGLOBIN 12.7 g/dL (14.0-18.0); LYMPHOCYTES % (AUTO) 17.1 %; MEAN CORPUSCULAR HEMOGLOBIN 28.9 pg (27.0-31.0); MEAN CORPUSCULAR HGB CONC 32.1 g/dL (32.0-36.0); MEAN CORPUSCULAR VOLUME 90.2 fL (80.0-94.0); MEAN PLATELET VOLUME 8.2 fL (7.4-11.4); MONOCYTES # (AUTO) 1.3 10^3/uL (0.0-1.0); MONOCYTES % (AUTO) 7.6 %; NEUTROPHILS # (AUTO) 12.7 10^3/uL (1.5-6.6); NEUTROPHILS % (AUTO) 73.5 %; PLT - PLATELET COUNT 510 10^3/uL (130-450); RED BLOOD COUNT 4.39 10^6/uL (4.70-6.10); RED CELL DISTRIBUTION WIDTH 12.9 % (12.0-15.0); WHITE BLOOD COUNT 17.3 x10^3/uL (4.8-10.8)
--- NOTE | 2023-06-02 21:30 | ED Physician Documentation ---
History of Present Illness - Stated complaint Stated Complaint: SOA/DIZZY/LOWER BACK PX - Chief complaint Chief Complaint: Abd Pain - History obtained from History obtained from: Patient, Family - History of Present Illness Timing: How many weeks ago (4) - Additonal information Additional information: 57-year-old Franky Kaiser had a dental procedure done 05/04/2023 he had a sinus lift a bone graft and tooth extraction for a abscessed tooth. 2 weeks later came to the emergency department not feeling well and was noted to have an elevated white blood cell count and elevated ESR. He was started on clindamycin and dexamethasone. This week the patient has reduced his level of activity and is feeling dizzy whenever he is up and around. His states that he is continuing to do the laundry and dishes but he is slow at it and he is dizzy by the time he is finished. He went in to see urgent care with the chief complaint of diaphoresis and weakness. He had CT scan and blood work done 05/30/23. He was asked come to the emergency department today for evaluation of a hepatic abscess. Review of Systems Constitutional: reports: Chills, Myalgias, Sweats Eyes: denies: Decreased vision Ears: denies: Ear pain Nose: denies: Rhinorrhea / runny nose, Congestion Throat: denies: Sore throat Cardiac: denies: Chest pain / pressure, Palpitations Respiratory: reports: Dyspnea, Cough GI: reports: Abdominal Pain PD PAST MEDICAL HISTORY - Past Medical History Cardiovascular: Hypertension Respiratory: None Endocrine/Autoimmune: None GI: None : None HEENT: Chronic vision loss Psych: Depression Musculoskeletal: Osteoarthritis Derm: None - Past Surgical History Past Surgical History: No General: Appendectomy Ortho: Arthroscopic surgery - Present Medications Home Medications: Ambulatory Orders Medication Instructions Recorded Confirmed Aspirin [Aspirin EC] 81 mg PO DAILY 06/14/19 05/20/23 Lisinopril [Zestril] 20 mg PO DAILY 06/14/19 05/20/23 Clindamycin [Cleocin] 300 mg PO TID 5 Days #15 cap 05/20/23 HYDROcod/ACETAM 5/325 [Webb 5/325] 1 ea PO Q6H PRN #14 tablet 05/20/23 Naproxen Sodium [Aleve] 220 mg PO BID PRN 02/13/24 02/13/24 dexAMETHasone [Decadron] 4 mg PO DAILY #5 tablet 05/20/23 - Allergies Allergies/Adverse Reactions: Allergies Allergy/AdvReac Type Severity Reaction Status Date / Time meperidine HCl * Allergy Hives Verified 06/02/23 20:24 [From Demerol] shrimp Allergy Respiratory Verified 06/02/23 20:24 Sulfa (Sulfonamide AdvReac Nausea Verified 06/02/23 20:24 Antibiotics) - Social History Does the pt smoke?: No Smoking Status: Never smoker Does the pt drink ETOH?: No Does the pt have substance abuse?: No - Immunizations Immunizations: TDAP >10years/unknown - POLST Patient has POLST: No PD ED PE NORMAL - Vitals Vital signs reviewed: Yes (normal ) - General General: Alert and oriented X 3, Well developed/nourished, Other (Pale appearing 57-year-old male who appears mildly anxious) - HEENT HEENT: Atraumatic, PERRL, EOMI - Neck Neck: Supple, no meningeal sign, No bony TTP - Cardiac Cardiac: RRR, No murmur - Respiratory Respiratory: No respiratory distress, Clear bilaterally - Abdomen Abdomen: Normal bowel sounds, Soft, Non distended, No organomegaly, Other (mild epigastric tenderness) - Back Back: No CVA TTP, No spinal TTP - Derm Derm: Normal color, Warm and dry, No rash - Extremities Extremities: No deformity, No edema - Neuro Neuro: Alert and oriented X 3, 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, No motor deficit, No sensory deficit, Normal speech Eye Opening: Spontaneous Motor: Obeys Commands Verbal: Oriented GCS Score: 15 - Psych Psych: Other (Mood is anxious and the affect is blunted) Results - Vitals Vitals: Vital Signs - 24 hr 06/02/23 06/02/23 06/02/23 20:14 21:33 22:31 Temperature 36.7 C Heart Rate 75 95 74 Respiratory 20 16 18 Rate Blood Pressure 117/73 115/77 123/77 O2 Saturation 100 100 100 06/02/23 06/03/23 06/03/23 22:56 02:04 04:21 Temperature Heart Rate 74 68 61 Respiratory 18 20 20 Rate Blood Pressure 127/77 146/76 H 107/68 O2 Saturation 100 98 98 Oxygen O2 Source Room air - Labs Labs: Laboratory Tests 06/02/23 06/02/23 06/02/23 20:47 20:47 21:12 WBC 17.3 H RBC 4.39 L Hgb 12.7 L Hct 39.6 L MCV 90.2 MCH 28.9 MCHC 32.1 RDW 12.9 Plt Count 510 H MPV 8.2 Neut # (Auto) 12.7 H Lymph # (Auto) 3.0 Churchill # (Auto) 1.3 H Eos # (Auto) 0.1 Baso # (Auto) 0.1 Absolute Nucleated RBC 0.00 Nucleated RBC % 0.0 PT INR Sodium 133 L Potassium 4.2 Chloride 99 L Carbon Dioxide 25 Anion Gap 9.0 BUN 17 Creatinine 0.8 Estimated GFR (MDRD) 100 Glucose 86 Lactic Acid Calcium 9.8 Total Bilirubin 0.3 AST 29 ALT 60 Alkaline Phosphatase 203 H Total Protein 7.8 Albumin 3.7 Globulin 4.1 Albumin/Globulin Ratio 0.9 L Nasal Adenovirus (PCR) NOT DETECTED Nasal B. parapertussis DNA (PCR) NOT DETECTED Nasal Coronavir 229E PCR NOT DETECTED Nasal Coronavir HKU1 PCR NOT DETECTED Nasal Coronavir NL63 PCR NOT DETECTED Nasal Coronavir OC43 PCR NOT DETECTED Nasal Enterovir/Rhinovir PCR NOT DETECTED Nasal Influenza B PCR NOT DETECTED Nasal Influenza A PCR NOT DETECTED Nasal Parainfluen 1 PCR NOT DETECTED Nasal Parainfluen 2 PCR NOT DETECTED Nasal Parainfluen 3 PCR NOT DETECTED Nasal Parainfluen 4 PCR NOT DETECTED Nasal RSV (PCR) NOT DETECTED Nasal B.pertussis DNA PCR NOT DETECTED Nasal C.pneumoniae (PCR) NOT DETECTED Domingo Human Metapneumo PCR NOT DETECTED Nasal M.pneumoniae (PCR) NOT DETECTED Nasal SARS-CoV-2 (PCR) NOT DETECTED 06/02/23 06/02/23 21:15 21:18 WBC RBC Hgb Hct MCV MCH MCHC RDW Plt Count MPV Neut # (Auto) Lymph # (Auto) Churchill # (Auto) Eos # (Auto) Baso # (Auto) Absolute Nucleated RBC Nucleated RBC % PT 16.7 H INR 1.6 H Sodium Potassium Chloride Carbon Dioxide Anion Gap BUN Creatinine Estimated GFR (MDRD) Glucose Lactic Acid 1.0 Calcium Total Bilirubin AST ALT Alkaline Phosphatase Total Protein Albumin Globulin Albumin/Globulin Ratio Nasal Adenovirus (PCR) Nasal B. parapertussis DNA (PCR) Nasal Coronavir 229E PCR Nasal Coronavir HKU1 PCR Nasal Coronavir NL63 PCR Nasal Coronavir OC43 PCR Nasal Enterovir/Rhinovir PCR Nasal Influenza B PCR Nasal Influenza A PCR Nasal Parainfluen 1 PCR Nasal Parainfluen 2 PCR Nasal Parainfluen 3 PCR Nasal Parainfluen 4 PCR Nasal RSV (PCR) Nasal B.pertussis DNA PCR Nasal C.pneumoniae (PCR) Domingo Human Metapneumo PCR Nasal M.pneumoniae (PCR) Nasal SARS-CoV-2 (PCR) - Rads (name of study) CT ab pel done 05/30/23 Relevant Findings:: Final report received, See rad report PD Medical Decision Making - ED course Complexity details: reviewed old records, reviewed results, re-evaluated patient, considered differential, d/w patient, d/w family Reviewed Lab Results: We reviewed a complete blood count showing a white blood cell count markedly elevated at 17.3 down from 22 K last week. hemoglobin mildly depressed at 12.7 and hematocrit mildly depressed at 39.6 both of these levels are very similar to what the patient has had over the past 2 weeks. Platelets were elevated at 510,000. It appears the patient's platelets have peaked at 706,000 about 10 days ago. Coagulation studies showed a PT of 16.7 and an INR of 1.6 chemistries were remarkable for an alkaline phosphatase elevated at 203 the electrolytes were essentially normal kidney and function and the remainder of the liver functions appear normal. Lactate was 1.0. The patient was negative for viruses on the respiratory panel. In view of the findings on the patient's CT scan it appears that the patient's elevated white blood cell count and thrombocytosis is likely related to development of a liver abscess. CT ab pel done 05/30/23 Impression: 1. Noncirrhotic liver morphology with new large heterogeneous bilobed mass with central necrosis measuring 6.7 x 6 0.4 x 4.9 x 4.1 cm. With peripheral enhancement. Findings are suspicious for abscess, primary liver malignancy (i.e.hepatocellular carcinoma or cholangiocarcinoma) versus metastatic disease. Correlate with AFP and recommend an MRI of the liver and tissue sampling for further evaluation. No hydronephrosis or nephrolithiasis bladder is underdistended and appears grossly normal. No evidence of metastatic disease within the remainder of the abdomen or pelvis. Sigmoid and colonic diverticulosis without diverticulitis. ED course: 57-year-old Franky Kaiser had a tooth extraction nearly 1 month ago with a bad infection. He never fully recovered eventually began to feel worse and was evaluated in the emergency department found to have thrombocytosis and leukocytosis as well as a markedly elevated sed rate. Infection was suspected she was placed on some clindamycin but it was not until he had CT scan of the abdomen and pelvis that demonstrated the presence of a liver abscess. He was asked to go to a tertiary care hospital for treatment. The patient felt that he was well and thought he would just go in to see his primary care doctor the next day where he could get his liver abscess drained. At their insistence he has come to the emergency department for evaluation. We were not able to immediately secure a bed for the patient and we have begun him on intravenous cefepime 2 g every 8 hours. He is a [facility] patient and he is in the queue at [facility]. At shift change his care is turned over to Dr. Siva Suarez anticipating a transfer to a tertiary hospital today. Departure - Departure Disposition: 02 Transfer Acute Care Hosp Clinical Impression: Liver abscess Condition: Stable
[2023-06-02 21:33] LABS: ALBUMIN 3.7 g/dL (3.2-5.5); ALBUMIN/GLOBULIN RATIO 0.9 (1.0-2.2); BILIRUBIN,TOTAL 0.3 mg/dL (0.2-1.0); CALCIUM 9.8 mg/dL (8.5-10.3); CREATININE 0.8 mg/dL (0.6-1.3); POTASSIUM 4.2 mmol/L (3.5-4.5); TOTAL PROTEIN 7.8 g/dL (6.4-8.9)
[2023-06-02 21:44] LABS: INR 1.6 (0.8-1.2); PT - PROTHROMBIN TIME 16.7 secs (9.9-12.6)
[2023-06-02 22:19] LABS: B. PARAPERTUSSIS- RESP PCR PAN NOT DETECTED; B. PERTUSSIS- RESP PCR PANEL NOT DETECTED; C. PNEUMONIAE- RESP PCR PANEL NOT DETECTED; CORONAVIRUS 229E-RESP PCR NOT DETECTED; CORONAVIRUS HKU1-RESP PCR NOT DETECTED; CORONAVIRUS NL63-RESP PCR NOT DETECTED; CORONAVIRUS OC43-RESP PCR NOT DETECTED; HUMAN METAPNEUMOVIRUS NOT DETECTED; INFLUENZA A- RESP PCR PANEL NOT DETECTED; INFLUENZA B - RESP PCR PANEL NOT DETECTED; M. PNEUMONIAE- RESP PCR PANEL NOT DETECTED; PARAINFLUENZA VIRUS 1 NOT DETECTED; PARAINFLUENZA VIRUS 2 NOT DETECTED; PARAINFLUENZA VIRUS 3 NOT DETECTED; PARAINFLUENZA VIRUS 4 NOT DETECTED; RHINOVIRUS/ENTEROVIRUS NOT DETECTED; RSV- RESP PCR PANEL NOT DETECTED; SARS-CoV-2 -RESP PCR PANEL NOT DETECTED
[2023-06-02] MEDS: CEFEPIME 2 GM in SODIUM CHLORIDE 0.9% MINIBAG 100 ML IV STA (22:27)
[2023-06-03] MEDS: KETOROLAC 30 MG/ML VIAL IVP STA (02:20)
[2023-06-03] MEDS: CEFEPIME 2 GM in SODIUM CHLORIDE 0.9% MINIBAG 100 ML IV SCH (05:50)
[2023-06-03] MEDS: metroNIDAZOLE 500 MG/100 ML 500 MG/100 ML BAG IV ONE (07:40)
--- NOTE | 2023-06-03 08:11 | PHARMACY PROGRESS NOTE ---
- Best Possible Medication History Admit Date and Time: Processed by: Nursing Medications reviewed in ED?: Yes Medication History completed: Yes Patient Interview: Completed Secondary Source(s): Pharmacy records (interview completed by kennedi in ED and verified by myself ), Insurance records As the person ultimately responsible for medication therapy, providers are able to order a medication from an existing home medication list in [facility] via the "Reconcile Routine" prior to Confirmation of that medication by home support worker. Such practice is discouraged except when the physician, in their clinical judgment, deems that a medical need exists for a medication without regard to previous use.
--- NOTE | 2023-06-03 08:48 | ED Physician Documentation ---
ED Addendum - Addendum Addendum: 06/03/23 Patient received in signout from Dr. Quinn at shift change. Patient had an outpatient CT scan with findings concerning for liver abscess. He is reporting awaiting transfer to higher level of care. He had been started on cefepime. I have also added on metronidazole. Patient has no complaints this morning. Understands that we are still pursuing transfer. 06/03/23 10:12 We are still awaiting accepting facility for transfer. I discussed with radiologist, Dr. Kwan. We do have some capabilities to handle liver abscesses but do not have the equipment to handle any potential complications. He recommends that while the patient is boarding we obtain a liver MRI as it has been several days since his prior scan and we can then determine if he could potentially have a procedure here. 06/03/23 10:51 Radiologist called back - we are not currently able to use the [place] w CT machine for this procedure as staff has not been trained with the new machine. Recommends transfer. 06/03/23 12:48 D/W Dr. Gautam Sen (Hospitalist at [facility]) - Accepts pt for transfer. William has already spoken to Dr. Turner (IR) and GI. Plan for procedure tomorrow so pt can eat today. NPO after midnight. I did update the patient regarding the plan of care and that he has been accepted at [facility]. Departure - Departure Disposition: 02 Transfer Acute Care Hosp Clinical Impression: Liver abscess Condition: Stable Forms: PCP List
[2023-06-03] MEDS: lisinopriL 20 MG TABLET PO SCH (08:52)
[2023-06-03] MEDS ORDERED: GADOTERATE MEGLUMINE 10 MMOL/20 ML VIAL ONE (10:47)
[2023-06-03 18:20] VITALS: BP 119/66; O2SAT 97
== END 2023-06-03 19:17 | disposition short-term general hospital (02) ==
LOC: ED 20:10
DX: K75.0 Abscess of liver (principal); D68.9 Coagulation defect, unspecified; D75.839 Thrombocytosis, unspecified; D72.829 Elevated white blood cell count, unspecified; Z98.890 Other specified postprocedural states; I10 Essential (primary) hypertension; Z79.82 Long term (current) use of aspirin; Z79.899 Other long term (current) drug therapy
CPT/HCPCS: 36415; 80053; 83605; 85025; 85610; 87040; 87633; 96365; 96366; 96367; 96375; 99285; A9270; A9575

== ENCOUNTER 2023-12-23 09:53 | Outpatient (CLI) | payer OTHER ==
[2023-12-23 10:24] LABS: BASOPHILS # (AUTO) 0.1 10^3/uL (0.0-0.1); EOSINOPHILS # (AUTO) 0.5 10^3/uL (0.0-0.7); EOSINOPHILS % (AUTO) 5.8 %; HCT - HEMATOCRIT 46.5 % (42.0-52.0); HGB - HEMOGLOBIN 15.7 g/dL (14.0-18.0); LYMPHOCYTES # (AUTO) 1.9 10^3/uL (1.5-3.5); LYMPHOCYTES % (AUTO) 23.7 %; MEAN CORPUSCULAR HGB CONC 33.8 g/dL (32.0-36.0); MEAN CORPUSCULAR VOLUME 91.9 fL (80.0-94.0); MEAN PLATELET VOLUME 8.7 fL (7.4-11.4); MONOCYTES # (AUTO) 0.6 10^3/uL (0.0-1.0); NEUTROPHILS # (AUTO) 5.1 10^3/uL (1.5-6.6); NEUTROPHILS % (AUTO) 62.3 %; PLT - PLATELET COUNT 319 10^3/uL (130-450); RED BLOOD COUNT 5.06 10^6/uL (4.70-6.10); RED CELL DISTRIBUTION WIDTH 13.6 % (12.0-15.0); WHITE BLOOD COUNT 8.1 x10^3/uL (4.8-10.8)
[2023-12-23 10:40] LABS: ALBUMIN 4.7 g/dL (3.2-5.5); ALBUMIN/GLOBULIN RATIO 1.9 (1.0-2.2); ALKALINE PHOSPHATASE 101 IU/L (42-121); ALT ALANINE AMINOTRANSFERASE 26 IU/L (10-60); AST ASPARTATE AMINOTRANSFERASE 22 IU/L (10-42); BILIRUBIN,TOTAL 0.5 mg/dL (0.2-1.0); BUN - BLOOD UREA NITROGEN 15 mg/dL (6-20); CALCIUM 10.3 mg/dL (8.5-10.3); CARBON DIOXIDE - CO2 29 mmol/L (21-32); CHLORIDE 103 mmol/L (101-111); CREATININE 0.9 mg/dL (0.6-1.3); CRP - C-REACTIVE PROTEIN < 0.5 mg/dL (<0.5); GFR - MDRD 87 (>89); GLUCOSE 98 mg/dL (74-104); POTASSIUM 4.4 mmol/L (3.5-4.5); SODIUM 137 mmol/L (135-145); TOTAL PROTEIN 7.2 g/dL (6.4-8.9)
--- NOTE | 2023-12-23 15:46 | XRAY Report ---
PROCEDURE: Chest 2V INDICATIONS: ACUTE COUGH, DIZZINESS TECHNIQUE: 2 views of the chest were acquired. COMPARISON: 05/20/2023 FINDINGS: Surgical changes and devices: None. Lungs and pleura: No pleural effusions or pneumothorax. Lungs are clear. Mediastinum: Mediastinal contours appear normal. Heart size is normal. Bones and chest wall: No suspicious bony lesions. Overlying soft tissues appear unremarkable. IMPRESSION: No acute cardiopulmonary process. Reviewed by: Anna Cueva MD on 12/23/2023 3:45 PM PDT Approved by: Anna Cueva MD on 12/23/2023 3:45 PM PDT Station ID: [id number]
== END 2023-12-23 09:54 | disposition home or self-care (01) ==
LOC: LAB 09:53
PROVIDERS: ATTEND Physician Assistant
DX: K75.0 Abscess of liver (principal); R79.89 Other specified abnormal findings of blood chemistry; R05.1 Acute cough; R42 Dizziness and giddiness
CPT/HCPCS: 36415; 80053; 85025; 85651; 86140; 87040